=== PATIENT | male | born 1995 | race Native Hawaiian/Other Pacific Islander ===

== ENCOUNTER 2017-12-28 00:23 | Emergency (ER) | payer SELFPAY ==
[~2017-12-28] VITALS: Ht 175.3 cm; Wt 68.9 kg
[2017-12-28 00:27] VITALS: TEMP 98.2
[2017-12-28 00:56] LABS: BASO # 0.1 (0.0-0.2); BASO % 0.5 % (0.0-2.0); EOS # 0.2 (0.0-0.7); EOS % 1.8 % (0-4.0); GRAN # 9.3 (1.4-6.5); GRAN % 81.9 % (42.2-75.2); HEMATOCRIT 48.1 % (36.0-47.0); HEMOGLOBIN 15.6 g/dl (12.5-16.1); LYMPH # 1.1 (1.2-3.4); LYMPH % 9.9 % (20.0-51.0); MEAN CELL VOLUME 86 fl (80.0-95.0); MEAN CORPUSCULAR HEMOGLOBIN 28 pg (26.0-32.0); MEAN CORPUSCULAR HGB CONC 32 g/dl (33.0-37.0); MEAN PLATELET VOLUME 8.4 fl (7.4-10.4); MONO # 0.6 (0.1-0.6); MONO % 5.3 % (1.7-9.3); PLATELET COUNT 316 K/mm3 (130-400); RED BLOOD COUNT 5.59 M/mm3 (4.20-5.60); REDCELL DISTRIBUTION WIDTH-CV 13.2 % (11.5-14.5)
[2017-12-28 01:06] LABS: ALBUMIN 4.1 gm/dL (3.5-5.0); BILIRUBIN,TOTAL 0.4 mg/dL (0.0-1.0); CALCIUM 9.1 mg/dL (8.4-10.2); CREATININE, serum 0.88 mg/dL (0.66-1.25); POTASSIUM 4.3 mmol/L (3.4-5.0); TOTAL PROTEIN 8.6 gm/dL (6.4-8.2)
[2017-12-28 02:29] VITALS: BP 124/78; PULSE 69
== END 2017-12-28 02:30 | disposition home or self-care (01) ==
LOC: COL.ER 00:23
PROVIDERS: Nurse Practitioner
DX: J06.9 Acute upper respiratory infection, unspecified (principal); R11.2 Nausea with vomiting, unspecified; J45.909 Unspecified asthma, uncomplicated; Z87.891 Personal history of nicotine dependence
CPT/HCPCS: J1885; J2405; J7030

== ENCOUNTER 2018-03-11 22:47 | Emergency (ER) | payer SELFPAY ==
[~2018-03-11] VITALS: Ht 162.6 cm; Wt 72.7 kg
[2018-03-11 22:49] VITALS: TEMP 98.2
[2018-03-11 23:15] LABS: BASO # 0.1 (0.0-0.2); BASO % 0.9 % (0.0-2.0); EOS # 0.4 (0.0-0.7); EOS % 3.8 % (0-4.0); GRAN # 5.9 (1.4-6.5); GRAN % 50.2 % (42.2-75.2); HEMATOCRIT 45.5 % (36.0-47.0); HEMOGLOBIN 14.9 g/dl (12.5-16.1); LYMPH # 4.3 (1.2-3.4); LYMPH % 36.7 % (20.0-51.0); MEAN CELL VOLUME 86 fl (80.0-95.0); MEAN CORPUSCULAR HEMOGLOBIN 28 pg (26.0-32.0); MEAN CORPUSCULAR HGB CONC 33 g/dl (33.0-37.0); MEAN PLATELET VOLUME 8.2 fl (7.4-10.4); MONO # 0.9 (0.1-0.6); MONO % 7.5 % (1.7-9.3); PLATELET COUNT 326 K/mm3 (130-400); RED BLOOD COUNT 5.27 M/mm3 (4.20-5.60); REDCELL DISTRIBUTION WIDTH-CV 12.6 % (11.5-14.5)
[2018-03-11 23:25] LABS: ALANINE AMINOTRANSFERASE 31 U/L (21-72); ALBUMIN 3.8 gm/dL (3.5-5.0); ALKALINE PHOSPHATASE 72 U/L (50-136); ANION GAP 11 mmol/L (7-16); AST,SGOT 38 U/L (15-37); BILIRUBIN,TOTAL 0.1 mg/dL (0.0-1.0); BLOOD UREA NITROGEN 11 mg/dL (9-20); CALCIUM 8.5 mg/dL (8.4-10.2); CARBON DIOXIDE 28 mmol/L (22-30); CHLORIDE 100 mmol/L (98-107); CREATININE, serum 0.93 mg/dL (0.66-1.25); GLUCOSE 103 mg/dL (74-106); POTASSIUM 4.2 mmol/L (3.4-5.0); SODIUM 139 mmol/L (137-145); TOTAL PROTEIN 7.4 gm/dL (6.4-8.2)
[2018-03-11 23:30] LABS: ALCOHOL(ethanol),MEDICAL < 10 mg/dL
[2018-03-11 23:41] LABS: PROLACTIN 35.7 ng/mL (3.7-17.9)
[2018-03-12 00:10] LABS: COLLECTION METHOD CLEAN CATCH
[2018-03-12 00:19] LABS: MUCOUS Present /lpf; PH 6 (5-8); SQUAMOUS EPITHELIAL 0-2 /hpf; URINE APPEARANCE Clear; URINE BACTERIA None Seen /hpf; URINE BILIRUBIN Negative (NEGATIVE); URINE BLOOD 1+ (NEGATIVE); URINE COLOR Yellow; URINE GLUCOSE Negative (NEGATIVE); URINE KETONE Negative (NEGATIVE); URINE LEUKOCYTE ESTERASE Negative (NEGATIVE); URINE NITRATE Negative (NEGATIVE); URINE PROTEIN(semi-quant) 1+ (NEGATIVE); URINE RBC 0-2 /hpf; URINE UROBILINOGEN Negative (NEGATIVE)
[2018-03-12 00:25] LABS: TRICYCLIC ANTIDEPRESS URINE NEGATIVE
[2018-03-12 02:00] VITALS: BP 114/72; PULSE 99
[2018-03-12] MEDS ORDERED: KEPPRA 500MG500 MG PO (02:08)
== END 2018-03-12 02:19 | disposition home or self-care (01) ==
LOC: COL.ER 22:47
PROVIDERS: Emergency Medicine
DX: G40.909 Epilepsy, unspecified, not intractable, without status epilepticus (principal); F17.210 Nicotine dependence, cigarettes, uncomplicated
CPT/HCPCS: J1953

== ENCOUNTER 2022-04-01 12:40 | Emergency (ER) | payer SELFPAY ==
[~2022-04-01] VITALS: Ht 172.7 cm; Wt 70.5 kg
[~2022-04-01 12:40] MED LIST: KEPPRA 500MG500 MG PO
[2022-04-01 15:21] LABS: BASO # 0.1 K/mm3 (0.0-0.2); EOS # 0.1 K/mm3 (0.0-0.7); EOS % 1.3 % (0.0-4.0); GRAN # 3.7 K/mm3 (1.4-6.5); GRAN % 47.8 % (42.2-75.2); HEMATOCRIT 44.9 % (42.0-52.0); HEMOGLOBIN 14.8 g/dl (13.5-18.0); LYMPH % 38.6 % (20.0-51.0); MEAN CELL VOLUME 84 fl (80.0-100.0); MEAN CORPUSCULAR HEMOGLOBIN 28 pg (27-31); MEAN CORPUSCULAR HGB CONC 33 g/dl (33.0-37.0); MEAN PLATELET VOLUME 8.3 fl (7.4-10.4); MONO # 0.8 K/mm3 (0.1-0.6); MONO % 10.6 % (1.7-9.3); PLATELET COUNT 315 K/mm3 (130-400); RED BLOOD COUNT 5.37 M/mm3 (4.20-5.60)
[2022-04-01 15:38] LABS: ALBUMIN 3.4 gm/dL (3.5-5.0); BILIRUBIN,TOTAL 0.3 mg/dL (0.2-1.2); C-REACTIVE PROTEIN 0.27 mg/dL (0.00-0.50); CALCIUM 8.4 mg/dL (8.4-10.2); CREATININE, serum 0.92 mg/dL (0.72-1.25); POTASSIUM 3.8 mmol/L (3.5-4.5)
[2022-04-01 15:57] LABS: PROLACTIN 14.7 ng/mL (3.46-19.40)
[2022-04-01 16:05] LABS: COLLECTION METHOD CLEAN CATCH
[2022-04-01 16:10] LABS: PH 6 (5-8); SQUAMOUS EPITHELIAL 0-2 /hpf (0-10); URINE APPEARANCE Clear (CLEAR/HAZY); URINE BACTERIA None Seen /hpf (NONE SEEN); URINE BLOOD Negative (NEGATIVE); URINE COLOR Straw (YELLOW); URINE GLUCOSE Negative (NEGATIVE); URINE KETONE Negative (NEGATIVE); URINE NITRATE Negative (NEGATIVE); URINE PROTEIN(semi-quant) Negative (NEGATIVE); URINE RBC None Seen /hpf (0-2); URINE UROBILINOGEN Negative (NEGATIVE)
[2022-04-01 16:51] VITALS: BP 128/73; PULSE 50; TEMP 98.2
== END 2022-04-01 16:55 | disposition home or self-care (01) ==
LOC: COL.ER 12:40
PROVIDERS: Family Medicine
DX: G40.909 Epilepsy, unspecified, not intractable, without status epilepticus (principal); Z20.822 Contact with and (suspected) exposure to COVID-19; Z28.310 Unvaccinated for COVID-19
CPT/HCPCS: J7120

== ENCOUNTER 2022-10-13 15:44 | Emergency (ER) | payer SELFPAY ==
[~2022-10-13] VITALS: Ht 165.1 cm; Wt 81.8 kg
[2022-10-13 15:54] VITALS: BP 126/83; PULSE 105; TEMP 97
== END 2022-10-13 17:20 | disposition home or self-care (01) ==
LOC: COL.ER 15:44
DX: M54.50 Low back pain, unspecified (principal); M25.511 Pain in right shoulder; Z28.310 Unvaccinated for COVID-19